=== PATIENT | female | born 1970 | race Asian ===

== ENCOUNTER 2017-08-21 21:32 | Emergency (ER) | payer MEDICAID ==
[~2017-08-21] VITALS: Ht 154.9 cm; Wt 60.0 kg
[2017-08-22] MEDS ORDERED: ONDANSETRON HCL 4MG/2ML VIAL IV STA (00:45)
[2017-08-22] MEDS ORDERED: SODIUM CHLORIDE 0.9% 1,000 ML IV ONE (00:45)
[2017-08-22 00:55] LABS: CLARITY URINE CLEAR (CLEAR); COLOR URINE YELLOW (YELLOW); KETONES URINE NEGATIVE (NEGATIVE); LEUKOCYTE ESTERASE URINE NEGATIVE (NEGATIVE); NITRITE URINE NEGATIVE (NEGATIVE); OCCULT BLOOD URINE NEGATIVE (NEGATIVE); PH URINE 6.5 (4.5-8.0); PROTEIN URINE NEGATIVE (NEGATIVE); SPECIFIC GRAVITY URINE 1.009 (1.005-1.030); UROBILINOGEN URINE 0.2 E.U./dL (0.2-1.0)
[2017-08-22 01:32] LABS: BASOPHILS % 0.6 % (0.0-2.0); EOSINOPHILS % 2.8 % (0.0-5.0); HEMATOCRIT. 38.4 % (36.0-48.0); HEMOGLOBIN. 12.9 g/dL (12.0-16.0); MEAN CORPUSCULAR HEMOGLOBIN 27.5 pg (28.0-32.0); MEAN CORPUSCULAR VOLUME 82.1 fL (81.0-99.0); MONOCYTES % 5.3 % (2.0-8.0); NEUTROPHILS % 45.3 % (40.0-76.0); PLATELET 331 x1000/uL (130-400); RED BLOOD CELL COUNT 4.68 mill/uL (4.2-5.4); RED CELL DISTRIBUTION WIDTH 14.1 % (11.6-14.6)
[2017-08-22 01:51] LABS: CHLORIDE 101 mEq/L (98-107); TROPONIN I < 0.02 ng/mL (0.00-0.04)
[2017-08-22 04:29] VITALS: BP 122/74
== END 2017-08-22 04:39 | disposition home or self-care (01) ==
LOC: ER 08-22 01:04
DX: R11.2 Nausea with vomiting, unspecified (principal); R53.1 Weakness; E78.00 Pure hypercholesterolemia, unspecified; E11.9 Type 2 diabetes mellitus without complications; I10 Essential (primary) hypertension
CPT/HCPCS: 36415; 71045; 74176; 80053; 81003; 81025; 83605; 83690; 84484; 85025; 87040; 93005; 96361; 96374; 99285; J2405; J7030; Z7610

== ENCOUNTER 2021-07-14 23:03 | Emergency (ER) | payer MEDICAID ==
[~2021-07-14] VITALS: Ht 162.6 cm; Wt 55.0 kg
[2021-07-15 00:38] LABS: BASOPHILS % 0.5 % (0.0-2.0); EOSINOPHILS % 1.7 % (0.0-5.0); HEMOGLOBIN. 12.9 g/dL (12.0-16.0); LYMPHOCYTES % 24.6 % (20.0-50.0); MEAN CORPUSCULAR HEMOGLOBIN 28.3 pg (28.0-32.0); MEAN CORPUSCULAR VOLUME 85.6 fL (81.0-99.0); MONOCYTES % 4.9 % (2.0-8.0); NEUTROPHILS % 68.3 % (40.0-76.0); PLATELET 311 x1000/uL (130-400); RED BLOOD CELL COUNT 4.56 mill/uL (4.2-5.4); RED CELL DISTRIBUTION WIDTH 12.7 % (11.6-14.6)
[2021-07-15 00:46] LABS: CHLORIDE 93 mEq/L (98-107)
[2021-07-15 00:52] LABS: HCG SCREEN NEGATIVE
[2021-07-15] MEDS ORDERED: CEFTRIAXONE 1 G PREMIX 50 ML IV NR (01:45)
[2021-07-15] MEDS ORDERED: SODIUM CHLORIDE 0.9% 1000ML BAG (SEPSIS BOLUS) IV ONE (01:45)
[2021-07-15 02:59] LABS: CLARITY URINE CLEAR (CLEAR); COLOR URINE YELLOW (YELLOW); KETONES URINE TRACE (NEGATIVE); LEUKOCYTE ESTERASE URINE 2+ (NEGATIVE); NITRITE URINE NEGATIVE (NEGATIVE); OCCULT BLOOD URINE NEGATIVE (NEGATIVE); PH URINE 5.5 (4.5-8.0); PROTEIN URINE NEGATIVE (NEGATIVE); SPECIFIC GRAVITY URINE 1.012 (1.005-1.030); UROBILINOGEN URINE 0.2 E.U./dL (0.2-1.0)
[2021-07-15 03:03] VITALS: BP 131/70
[2021-07-15] MEDS ORDERED: VANCOMYCIN 1 G PREMIX 200 ML IV SCH (03:30)
== END 2021-07-15 03:29 | disposition short-term general hospital (02) ==
LOC: ER 23:32
DX: A41.9 Sepsis, unspecified organism (principal); R55 Syncope and collapse; E11.9 Type 2 diabetes mellitus without complications; I10 Essential (primary) hypertension
CPT/HCPCS: 36415; 70450; 71045; 80053; 81003; 83605; 83880; 84484; 84703; 85025; 86850; 86900; 86901; 93005; 96365; 99291; J0696